=== PATIENT | female | born 1995 | race African-American/Black ===

== ENCOUNTER 2021-02-12 00:11 | Inpatient (IN) ==
[2021-02-12] MEDS ORDERED: BUTORPHANOL 2 MG/ML VIAL IV PRN (00:21)
[2021-02-12] MEDS ORDERED: LACTATED RINGERS 1,000 ML IV ONE (00:21)
[2021-02-12] MEDS ORDERED: ONDANSETRON 4 MG/2 ML VIAL IV PRN (00:21)
[2021-02-12 00:44] LABS: Basophils % 0.3 % (0.0-0.8); Eosinophils # 0.2 10*3/uL (0.0-0.87); Eosinophils % 1.9 % (0.00-10.9); Hematocrit 39.4 VOL% (35.7-47.0); Hemoglobin 12.9 GM/DL (12.0-16.0); Immature Granulocytes % 0.3 %; Immature Granulocytes Absolute 0.03 #; Lymphocytes # 3.8 10*3/uL (1.4-4.0); Lymphocytes % 44.5 % (21.3-54.2); Mean Corpuscular HGB Conc 32.7 GM/DL (32-36); Mean Corpuscular Volume 80.2 FL (87-102); Mean Platelet Volume 11.1 FL (9.6-12.0); Platelet Count 185 T/CUMM (130-400); Red Blood Count 4.91 MC/CUMM (3.8-5.5); Red Cell Distribution Width 14.6 % (9.3-17.3); White Blood Count 8.6 T/CUMM (4-12)
[2021-02-12 01:05] LABS: Alanine Aminotransferase 29 U/L (13-56); Albumin 3.1 G/DL (3.4-5.0); Alkaline Phosphatase 106 U/L (45-117); Aspartate Amino Transferase 30 U/L (0-37); Bilirubin,Total < 0.39 MG/DL (0.20-1.00); Blood Urea Nitrogen 10 MG/DL (7-18); Calcium 9.5 MG/DL (8.5-10.1); Carbon Dioxide 19 MMOL/L (21-32); Estimated Glom Filtration Rate 108 ML/MIN; Glucose 91 MG/DL (74-106); Osmolality,Calculated 264.4 MOS/KG (273-304); Potassium 4.2 MMOL/L (3.5-5.1); Sodium 133 MMOL/L (136-145); Total Protein 7.3 G/DL (6.4-8.2)
[2021-02-12] MEDS ORDERED: OXYTOCIN/LR 20 UNIT/1,000 ML BAG IV SCH (01:30)
[2021-02-12] MEDS: LACTATED RINGERS 1,000 ML IV SCH ×3 (01:31→15:49)
[2021-02-12] MEDS ORDERED: AMPICILLIN INJ 2,000 MG in SODIUM CHLORIDE 0.9% 100 ML IV SCH (21:30)
[2021-02-13] MEDS: LACTATED RINGERS 1,000 ML IV SCH (00:28)
[2021-02-13] MEDS ORDERED: TERBUTALINE 1 MG/1 ML VIAL SUBCUT ONE (00:46)
[2021-02-13] MEDS ORDERED: ceFAZolin 2,000 MG/50 ML DUPLEX IV ONE (00:47)
[2021-02-13] MEDS ORDERED: FAMOTIDINE 20 MG/2 ML VIAL IV ONE (00:47)
[2021-02-13] MEDS ORDERED: CITRIC ACID/SODIUM CITRATE 30 ML UDCUP PO ONE (00:47)
[2021-02-13] MEDS ORDERED: CARBOPROST TROMETHAMINE 250 MCG/ML AMP IM PRN (00:55)
[2021-02-13] MEDS ORDERED: METHYLERGONOVINE 0.2 MG/1 ML AMP IM PRN (00:55)
[2021-02-13] MEDS ORDERED: TRANEXAMIC ACID 1,000 MG in SODIUM CHLORIDE 0.9% 100 ML IV PRN (00:55)
[2021-02-13] MEDS ORDERED: miSOPROStoL 200 MCG TABLET RECTAL PRN (00:55)
[2021-02-13] MEDS ORDERED: OXYTOCIN/LR 30 UNIT/1,000 ML BAG IV ONE (00:55)
[2021-02-13] MEDS ORDERED: OXYTOCIN 10 UNIT/ML VIAL IM ONE (00:59)
[2021-02-13] MEDS ORDERED: ONDANSETRON 4 MG/2 ML VIAL ONE (01:10)
[2021-02-13] MEDS ORDERED: BUPIVACAINE SPINAL 0.75% 2 ML AMP SPINAL ONE (01:10)
[2021-02-13] MEDS ORDERED: PHENYLEPHRINE 1 MG/10 ML SYRINGE IV ONE (01:10)
[2021-02-13] MEDS ORDERED: MIDAZOLAM 2 MG/2 ML VIAL ONE (01:56)
[2021-02-13 02:07] LABS: Cord Arterial Blood HCO3 19.8 MMOL/L
[2021-02-13 02:09] LABS: Cord Venous Blood HCO3 20.8 MMOL/L; Cord Venous Blood PO2 26.6
[2021-02-13 02:13] LABS: Bilirubin,Urine Negative (Negative); Blood, Urine Small mg/dL (Negative); Glucose,Urine (UA) Negative (Negative); Ketones,Urine Negative (Negative); Nitrite,Urine Negative (Negative); Protein,Urine Negative; RBC,Urine <1 /HPF (0-4); Squamous Epithelial Cell,Urine Occasional /HPF (0-10); Urine Appearance CLEAR (Clear); Urine Color Straw (Yellow); Urine Specific Gravity 1.005 (1.001-1.035); Urine Urobilinogen < 2.0 EU/DL (0.2-1.0)
[2021-02-13] MEDS ORDERED: ACETAMINOPHEN 325 MG TABLET PO PRN (02:16)
[2021-02-13] MEDS ORDERED: OXYTOCIN/LR 20 UNIT/1,000 ML BAG IV ONE (02:16)
[2021-02-13] MEDS ORDERED: ONDANSETRON 4 MG/2 ML VIAL IV PRN (02:16)
[2021-02-13] MEDS ORDERED: SIMETHICONE CHEW 80 MG TABLET PO PRN (02:16)
[2021-02-13] MEDS ORDERED: RHO(D) IMMUNE GLOBULIN 300 MCG SYRINGE IM ONE (02:16)
[2021-02-13] MEDS ORDERED: LACTATED RINGERS 1,000 ML IV SCH (02:30)
[2021-02-13] MEDS ORDERED: diphenhydrAMINE 50 MG/1 ML VIAL IV PRN (06:03)
[2021-02-13] MEDS ORDERED: KETOROLAC 30 MG/1 ML VIAL IV SCH (06:30)
[2021-02-13] MEDS: KETOROLAC 30 MG/1 ML VIAL IV SCH ×3 (08:12→20:57)
[2021-02-13 08:24] LABS: Basophils % 0.4 % (0.0-0.8); Eosinophils # 0.1 10*3/uL (0.0-0.87); Eosinophils % 0.8 % (0.00-10.9); Hematocrit 34.4 VOL% (35.7-47.0); Hemoglobin 11.3 GM/DL (12.0-16.0); Immature Granulocytes % 0.4 %; Immature Granulocytes Absolute 0.04 #; Lymphocytes # 2.8 10*3/uL (1.4-4.0); Lymphocytes % 29.4 % (21.3-54.2); Mean Corpuscular HGB Conc 32.8 GM/DL (32-36); Mean Corpuscular Volume 81.1 FL (87-102); Mean Platelet Volume 11.2 FL (9.6-12.0); Monocytes % 6.4 % (1.7-12.7); Neutrophils % 62.6 % (38.7-73.9); Platelet Count 144 T/CUMM (130-400); Red Blood Count 4.24 MC/CUMM (3.8-5.5); Red Cell Distribution Width 14.6 % (9.3-17.3); White Blood Count 9.6 T/CUMM (4-12)
[2021-02-13] MEDS: DOCUSATE SODIUM 100 MG CAPSULE PO SCH ×2 (10:32→20:52)
[2021-02-13] MEDS: MULTIVITAMIN (PRENATAL) TABLET PO SCH (10:33)
[2021-02-13] MEDS: HydrOXYzine PAMOATE 25 MG CAPSULE PO PRN ×2 (10:45→15:40)
[2021-02-13] MEDS: MAGNESIUM HYDROXIDE SUSP 30 ML UDCUP PO PRN (20:52)
[2021-02-14 04:58] LABS: Basophils % 0.3 % (0.0-0.8); Eosinophils # 0.1 10*3/uL (0.0-0.87); Eosinophils % 1.9 % (0.00-10.9); Hematocrit 33.9 VOL% (35.7-47.0); Hemoglobin 10.8 GM/DL (12.0-16.0); Immature Granulocytes % 0.3 %; Immature Granulocytes Absolute 0.02 #; Lymphocytes # 2.9 10*3/uL (1.4-4.0); Lymphocytes % 39.2 % (21.3-54.2); Mean Corpuscular HGB Conc 31.9 GM/DL (32-36); Mean Corpuscular Volume 82.3 FL (87-102); Mean Platelet Volume 10.9 FL (9.6-12.0); Monocytes % 7.1 % (1.7-12.7); Neutrophils % 51.2 % (38.7-73.9); Platelet Count 151 T/CUMM (130-400); Red Blood Count 4.12 MC/CUMM (3.8-5.5); Red Cell Distribution Width 14.8 % (9.3-17.3); White Blood Count 7.5 T/CUMM (4-12)
[2021-02-14 05:24] LABS: Hypochromasia 1+; Microcytosis 1+
[2021-02-14 05:25] LABS: Ovalocytes Slight; Platelet Estimate Adequate
[2021-02-14] MEDS: METOCLOPRAMIDE 10 MG TABLET PO SCH ×2 (07:48→16:04)
[2021-02-14] MEDS: IBUPROFEN 800 MG TABLET PO PRN ×2 (07:48→19:34)
[2021-02-14] MEDS: MULTIVITAMIN (PRENATAL) TABLET PO SCH ×2 (07:48→09:18)
[2021-02-14] MEDS: DOCUSATE SODIUM 100 MG CAPSULE PO SCH ×3 (07:48→21:04)
[2021-02-14] MEDS: MAGNESIUM HYDROXIDE SUSP 30 ML UDCUP PO PRN (07:49)
[2021-02-14] MEDS ORDERED: BISACODYL 10 MG SUPP RECTAL PRN (19:20)
[2021-02-15] MEDS: METOCLOPRAMIDE 10 MG TABLET PO SCH (00:01)
[2021-02-15] MEDS: DOCUSATE SODIUM 100 MG CAPSULE PO SCH (08:34)
[2021-02-15] MEDS: MULTIVITAMIN (PRENATAL) TABLET PO SCH (08:34)
[2021-02-15 09:00] VITALS: BP 125/78
== END 2021-02-15 11:54 | disposition home or self-care (01) | DRG 540 ==
LOC: N.LD 00:11 → N.OB 12:33 → N.LD 12:39 → N.OB 02-13 05:45
PROVIDERS: ADMIT Obstetrics & Gynecology; ATTEND Obstetrics & Gynecology
PROC: LDCSECT (ICD-10-PCS; 2021-02-13 01:00)